=== PATIENT | male | born 1975 | race Hispanic/Latino ===

== ENCOUNTER 2019-03-08 18:44 | Emergency (ER) | payer BC, SELFPAY ==
[2019-03-08 19:06] VITALS: BP 145/99; PULSE 78; RESP 16; TEMP 36.6; O2SAT 100
[2019-03-08 19:49] LABS: Add Manual Diff / Slide Review NO; Basophils Absolute Auto 100 /uL (0-100); Basophils Percent Auto 1.2 % (0-2); Eosinophils Absolute Auto 300 /uL (0-450); Eosinophils Percent Auto 4.6 % (2-4); Hematocrit 44.2 % (41-53); Hemoglobin 14.8 g/dL (13.5-17.5); Lymphocytes Absolute Auto 2100 /uL (1100-4500); Lymphocytes Percent Auto 34.5 % (25-40); Mean Corpuscular HGB Conc 33.4 % (30-36); Mean Corpuscular Hemoglobin 30.4 PG (26-34); Mean Corpuscular Volume 91.1 fL (80-100); Monocytes Absolute Auto 700 /uL (0-900); Monocytes Percent Auto 11.9 % (3-14); Neutrophils Absolute Auto 2900 /uL (1500-7000); Neutrophils Percent Auto 47.8 % (50-75); Platelet Count 268 X10^3/uL (150-400); Red Blood Cell Count 4.85 X10^6/uL (4.5-5.9); Red Cell Distribution Width 12.8 % (11.6-14.8); White Blood Cell Count 6.1 X10^3/uL (4.5-11.0)
[2019-03-08] MEDS: SODIUM CHLORIDE 0.9% 1,000 ML 150 ML IV (19:53)
[2019-03-08] MEDS: ONDANSETRON 4 MG/2 ML INJ IV (19:53)
[2019-03-08 19:56] LABS: INR 0.9 (0.9-1.3); Prothrombin Time 9.7 SECONDS (10.1-12.7)
[2019-03-08 20:00] LABS: D Dimer < 200 ng/mL (<230)
[2019-03-08 20:01] VITALS: BP 137/82; PULSE 63; RESP 16; O2SAT 100
[2019-03-08 20:02] LABS: Alanine Aminotransferase 76 IU/L (21-72); Albumin 4.8 g/dL (3.5-5.0); Albumin Globulin Ratio 1.6 (1.0-2.8); Alkaline Phosphatase 69 U/L (38-126); Ammonia (NH3) < 9.0 umol/L (9-30); Aspartate Aminotransferase 71 IU/L (17-59); Bilirubin Total 0.4 mg/dL (0.2-1.3); Blood Urea Nitrogen 9 mg/dL (9-20); Calcium 9.6 mg/dL (8.4-10.2); Carbon Dioxide 35 mmol/L (22-32); Chloride 101 mmol/L (98-107); Estimated Glomerular Filt Rate > 60.0 mL/min (>60); Ethanol (ETOH) < 10 mg/dL; Glucose 78 mg/dL (70-100); HEMOLYSIS 24 (0-50); Lactate (Lactic Acid) 1.1 mmol/L (0.7-2.1); Lipase 286 U/L (23-300); Potassium 4.1 mmol/L (3.4-5.1); Sodium 142 mmol/L (137-145); Total Protein 7.8 g/dL (6.3-8.2)
--- NOTE | 2019-03-08 20:08 | DI.CT.S_ITS ---
PROCEDURE: CT CHEST ABDOMEN W CON INDICATIONS: chest / abdomen pain, near syncope TECHNIQUE: After the administration of intravenous contrast, 5 mm thick sections acquired from the lung apices to the iliac crests. 5 mm coronal and sagittal reformats were performed, with additional 7 mm coronal MIP reformats through the lungs. For radiation dose reduction, the following was used: automated exposure control, adjustment of mA and/or kV according to patient size. COMPARISON: None. FINDINGS: Image quality: Excellent. CHEST: Lungs and pleura: No acute airspace opacities. 3 mm solid nodule in the posterior medial aspect of left lower lobe is seen series 3 image 182. Dependent atelectasis in posterior aspect of bilateral lower lobes are seen. Lobulated 7 x 4 mm nodule in posterior medial aspect of left lower lobe is also noted series 3 image 157. 4 mm ground glass density nodule in posterior-lateral aspect of left upper lobe is seen series 3 image 107. 3 mm calcified granuloma in anterior aspect of left upper lobe is also noted series 3 image 92. No pleural effusions or pneumothorax. Central and peripheral airways appear patent and normal in caliber. Mediastinum: Heart size is normal. No pericardial effusion. No mediastinal or hilar adenopathy by size criteria. Thoracic aorta and central pulmonary arteries are normal in size. Esophagus is normal in caliber. No hiatal hernia. Chest wall: No axillary or supraclavicular adenopathy by size criteria. Thyroid gland is within normal limits. ABDOMEN: Solid organs: Liver is normal in size and enhancement. Gallbladder is unremarkable. Biliary system is non dilated. Pancreas enhances normally. Spleen is normal in size and enhancement. No adrenal nodules. Kidneys demonstrate normal size and enhancement, without hydronephrosis. Peritoneum and bowel: Bowel loops demonstrate normal wall thickness and caliber. No free fluid or air. Nodes and vessels: No retroperitoneal or mesenteric adenopathy by size criteria. Aorta and inferior vena cava are normal in size. Bones: No suspicious bony lesions. No vertebral body compression fractures. Miscellaneous: No ventral hernias. IMPRESSION: 1. There is no aortic aneurysm or dissection. Pulmonary artery is normal in size. 2. Subcentimeter solid and well glass density nodules in bilateral lung carrington as described above. Followup CT study of chest in 6-12 months is recommended for evaluation of stability. Bilateral lungs are otherwise clear. 3. No lymphadenopathy is seen in chest or abdomen. No evidence of bowel obstruction. No free fluid or free air. Dictated by: Evin Clements M.D. on 03/08/2019 at 21:09 Approved by: Evin Clements M.D. on 03/08/2019 at 21:18
[2019-03-08 20:38] VITALS: BP 117/73; PULSE 74; RESP 18; O2SAT 100
[2019-03-08 21:07] VITALS: BP 120/78; PULSE 63; RESP 17; O2SAT 100
[2019-03-08 21:33] LABS: Bacteria Urine None Seen; RBC Urine None Seen (0-5/HPF); WBC Urine None Seen (0-5/HPF)
[2019-03-08 21:44] LABS: Ur Creatinine 50 (Normal); Ur Specific Gravity 1.015 (Normal); Urine Tetrahydrocannabinol Negative (Negative); Urine pH 5 (Normal)
[2019-03-08 21:45] LABS: UR Morphine/Opiate cutoff 300 Positive (Negative); Urine Amphetamines Negative (Negative); Urine Barbiturates Negative (Negative); Urine Benzodiazepines Positive (Negative); Urine Cocaine Negative (Negative); Urine MDMA Negative (Negative); Urine Methadone Negative (Negative); Urine Methamphetamines Positive (Negative); Urine Oxycodone Negative (Negative); Urine Phencyclidine Negative (Negative); Urine Tricyclic Antidepressant Negative (Negative)
[2019-03-08 21:49] LABS: Culture Indicated Urine Cult Not Indicated
--- NOTE | 2019-03-08 22:21 | ED_ITS ---
HPI - Abdominal Pain General Chief Complaint: Abdominal Pain Stated Complaint: blacked out earlier, nausea Time Seen by Provider: 03/08/19 19:00 Source: patient Mode of arrival: Ambulatory Limitations: no limitations History of Present Illness HPI narrative: 43-year-old male former smoker admits to alcohol a few times a month, presents with his daughter for evaluation of sudden onset severe epigastric pain earlier today. The pain was intense and made him feel as if he may black out. He presents complaining of some ongoing epigastric pain. He denies any chest pain or shortness of breath. He is not dizzy nor weak or lightheaded. He denies any history of the same. He recently traveled here from [facility]. He denies provocation, palliation or radiation of pain. 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 He last used on Wednesday. MD complaint: abdominal pain Onset (ago): hour(s) Pain Consistency: now resolved Location: epigastric Severity: moderate Quality: cramping and stabbing Radiation: none Migration to: no migration Relieving factors: nothing Exacerbating factors: nothing Associated symptoms: denies other symptoms Related Data Allergies Allergy/AdvReac Type Severity Reaction Status Date / Time No Known Drug Allergies Allergy Verified 03/08/19 20:23 Review of Systems Constitutional Constitutional: Denies chills, Denies fatigue, Denies fever(s), Denies frequent falls, Denies lethargy and Denies weakness Eyes Eyes: Denies change in vision, Denies eye discharge, Denies irritation and Denies loss of vision ENT Ears, Nose, Mouth, and Throat: Denies change in voice, Denies dizziness, Denies neck pain, Denies sore throat and Denies throat swelling Cardiovascular Cardiovascular: Denies chest pain, Denies irregular heart rhythm, Reports lightheadedness, Denies palpitations, Denies dyspnea, Denies dyspnea on exertion and Denies orthopnea Respiratory Respiratory: Denies cough, Denies dyspnea, Denies dyspnea on exertion and Denies wheezing Gastrointestinal Gastrointestinal: Reports abdominal pain, Denies change in bowel habits, Denies diarrhea, Denies nausea and Denies vomiting Genitourinary Genitourinary: Denies hematuria, Denies flank pain, Denies urinary incontinence and Denies urinary urgency Musculoskeletal Musculoskeletal: Denies back pain, Denies muscle weakness, Denies neck pain, Denies numbness and Denies tingling Integumentary/Breasts Skin/Breast: Denies pruritus, Denies erythema, Denies rash and Denies wounds Neurologic Neurologic: Denies behavioral changes, Denies confusion, Denies dizziness, Denies frequent falls, Denies loss of vision, Denies numbness, Denies tingling and Denies weakness Psychiatric Psychiatric: Denies anxiety, Denies behavioral changes, Denies confusion, Denies depression, Denies homicidal ideation and Denies suicidal ideation Endocrine Endocrine: Denies fatigue, Denies flushing and Denies palpitations Hematologic/Lymphatic Hematologic/Lymphatic: Denies easy bruising Allergic/Immunologic Allergic/Immunologic: Denies urticaria, Denies throat swelling and Denies wheezing Patient History Social History Smoking Status: Former smoker Social History Smoking Status: Former smoker alcohol intake frequency: a few times a month Substance Use Type: does not use Exam Narrative Exam Narrative: GENERAL: [43] year old patient appears stated age. Well- nourished, well-developed patient, in mild distress. Appears uncomfortable HEAD: Atraumatic. Normocephalic. EYES: Pupils equal round and reactive. Extraocular motions intact. No scleral icterus. No injection or drainage. ENT: Nose without bleeding, purulent drainage. Throat without erythema, tonsillar hypertrophy or exudate. Airway patent. NECK: Trachea midline. Non tender CARDIOVASCULAR: Regular rate and rhythm without murmurs, gallops, or rubs. RESPIRATORY: Clear to auscultation. Breath sounds equal bilaterally. No wheezes, rales, or rhonchi. GASTROINTESTINAL: Abdomen soft, severe epigastric pain, nondistended. EXTREMITIES: No edema or joint tenderness. BACK: Nontender without deformity or crepitance. No flank tenderness. NEURO: AOx3. SKIN: No rash or erythema of visible areas Initial Vital Signs Initial Vital Signs: Vital Signs Temperature 97.8 F 03/08/19 19:06 Pulse Rate 78 03/08/19 19:06 Respiratory Rate 16 03/08/19 19:06 Blood Pressure 145/99 H 03/08/19 19:06 Pulse Oximetry 100 03/08/19 19:06 Course Orders Ordered: ED Orders 03/08/19 19:40 Ammonia (NH3) Stat Complete Blood Count AUTO DIFF Stat Comprehensive Metabolic Panel Stat D Dimer Stat Ethanol (ETOH) Stat Lactate (Lactic Acid) Stat Lipase Stat Prothrombin Time INR Stat 10/16/19 20:08 CT chest abdomen w con Stat 03/08/19 21:20 Urine Drug Screen, Rapid Stat Urine Microscopic Stat 03/08/19 22:24 US abdomen limited Stat Discontinued Medications Hydromorphone HCl (Dilaudid) 0.5 mg IV NOW ONE Stop: 03/08/19 19:11 Last Admin: 03/08/19 21:08 Dose: Not Given Documented by: ROSENDO Sodium Chloride (Normal Saline 0.9%) 1,000 mls @ 150 mls/hr IV CONT RACIEL Last Infusion: 03/08/19 23:00 Dose: 0 mls/hr Documented by: Admin: 03/08/19 19:53 Dose: 150 mls/hr Documented by: ROSENDO Ondansetron HCl (Zofran) 4 mg IV NOW ONE Stop: 03/08/19 19:11 Last Admin: 03/08/19 19:53 Dose: 4 mg Documented by: ROSENDO Reevaluation(s) Reevaluation #1: patient shows tremendous improvement after fluids Vital Signs Vital signs: Vital Signs - 8 hr 03/08/19 19:06 03/08/19 20:01 03/08/19 20:38 Temperature 97.8 F Pulse Rate 78 63 74 Respiratory Rate 16 16 18 Blood Pressure Blood Pressure [Left Arm] 145/99 H 137/82 117/73 Pulse Oximetry 100 100 100 03/08/19 21:07 03/08/19 23:27 Temperature Pulse Rate 63 68 Respiratory Rate 17 14 Blood Pressure 118/74 Blood Pressure [Left Arm] 120/78 Pulse Oximetry 100 100 MDM - Abdominal Pain Lab Data Result diagrams: 03/08/19 19:40 03/08/19 19:40 Labs: Lab Results 03/08/19 03/08/19 03/08/19 Range/Units 19:40 19:40 19:40 WBC 6.1 (4.5-11.0) X10^3/uL RBC 4.85 (4.5-5.9) X10^6/uL Hgb 14.8 (13.5-17.5) g/dL Hct 44.2 (41-53) % MCV 91.1 (80-100) fL MCH 30.4 (26-34) PG MCHC 33.4 (30-36) % RDW 12.8 (11.6-14.8) % Plt Count 268 (150-400) X10^3/uL Neut % (Auto) 47.8 L (50-75) % Lymph % (Auto) 34.5 (25-40) % [place] % (Auto) 11.9 (3-14) % Eos % (Auto) 4.6 H (2-4) % Baso % (Auto) 1.2 (0-2) % Neut # (Auto) 2900 (4435-1433) /uL Lymph # (Auto) 2100 (3014-1460) /uL [place] # (Auto) 700 (0-900) /uL Eos # (Auto) 300 (0-450) /uL Baso # (Auto) 100 (0-100) /uL PT 9.7 L (10.1-12.7) SECONDS INR 0.9 (0.9-1.3) D-Dimer < 200 (<230) ng/mL Sodium 142 (137-145) mmol/L Potassium 4.1 (3.4-5.1) mmol/L Chloride 101 (98-107) mmol/L Carbon Dioxide 35 H (22-32) mmol/L BUN 9 (9-20) mg/dL Creatinine 1.00 (0.66-1.25) mg/dL Estimated GFR > 60.0 (>60) mL/min BUN/Creatinine Ratio 9.0 (6-22) Glucose 78 (70-100) mg/dL Lactate (0.7-2.1) mmol/L Calcium 9.6 (8.4-10.2) mg/dL Total Bilirubin 0.4 (0.2-1.3) mg/dL AST 71 H (17-59) IU/L ALT 76 H (21-72) IU/L Alkaline Phosphatase 69 (38-126) U/L Ammonia (9-30) umol/L Total Protein 7.8 (6.3-8.2) g/dL Albumin 4.8 (3.5-5.0) g/dL Globulin 3.0 (1.7-4.1) g/dL Albumin/Globulin Ratio 1.6 (1.0-2.8) Lipase 286 (23-300) U/L Urine RBC (0-5/HPF) Urine WBC (0-5/HPF) Urine Bacteria (None) Ur Culture Indicated? U Morph 300 ng/mL cutoff (Negative) Ur Oxycodone Screen (Negative) Urine Methadone Screen (Negative) Ur Barbiturates Screen (Negative) U Tricyclic Antidepress (Negative) Ur Phencyclidine Scrn (Negative) Ur Amphetamines Screen (Negative) U Methamphetamines Scrn (Negative) Ur MDMA Scrn (Ecstasy) (Negative) U Benzodiazepines Scrn (Negative) Urine Cocaine Screen (Negative) U Marijuana (THC) Screen (Negative) Ethyl Alcohol < 10 ( - 10) mg/dL 03/08/19 03/08/19 03/08/19 Range/Units 19:40 19:40 21:20 WBC (4.5-11.0) X10^3/uL RBC (4.5-5.9) X10^6/uL Hgb (13.5-17.5) g/dL Hct (41-53) % MCV (80-100) fL MCH (26-34) PG MCHC (30-36) % RDW (11.6-14.8) % Plt Count (150-400) X10^3/uL Neut % (Auto) (50-75) % Lymph % (Auto) (25-40) % [place] % (Auto) (3-14) % Eos % (Auto) (2-4) % Baso % (Auto) (0-2) % Neut # (Auto) (6993-2185) /uL Lymph # (Auto) (4537-5526) /uL [place] # (Auto) (0-900) /uL Eos # (Auto) (0-450) /uL Baso # (Auto) (0-100) /uL PT (10.1-12.7) SECONDS INR (0.9-1.3) D-Dimer (<230) ng/mL Sodium (137-145) mmol/L Potassium (3.4-5.1) mmol/L Chloride (98-107) mmol/L Carbon Dioxide (22-32) mmol/L BUN (9-20) mg/dL Creatinine (0.66-1.25) mg/dL Estimated GFR (>60) mL/min BUN/Creatinine Ratio (6-22) Glucose (70-100) mg/dL Lactate 1.1 (0.7-2.1) mmol/L Calcium (8.4-10.2) mg/dL Total Bilirubin (0.2-1.3) mg/dL AST (17-59) IU/L ALT (21-72) IU/L Alkaline Phosphatase (38-126) U/L Ammonia < 9.0 L (9-30) umol/L Total Protein (6.3-8.2) g/dL Albumin (3.5-5.0) g/dL Globulin (1.7-4.1) g/dL Albumin/Globulin Ratio (1.0-2.8) Lipase (23-300) U/L Urine RBC (0-5/HPF) Urine WBC (0-5/HPF) Urine Bacteria (None) Ur Culture Indicated? U Morph 300 ng/mL cutoff Positive H (Negative) Ur Oxycodone Screen Negative (Negative) Urine Methadone Screen Negative (Negative) Ur Barbiturates Screen Negative (Negative) U Tricyclic Antidepress Negative (Negative) Ur Phencyclidine Scrn Negative (Negative) Ur Amphetamines Screen Negative (Negative) U Methamphetamines Scrn Positive H (Negative) Ur MDMA Scrn (Ecstasy) Negative (Negative) U Benzodiazepines Scrn Positive H (Negative) Urine Cocaine Screen Negative (Negative) U Marijuana (THC) Screen Negative (Negative) Ethyl Alcohol ( - 10) mg/dL 03/08/19 Range/Units 21:20 WBC (4.5-11.0) X10^3/uL RBC (4.5-5.9) X10^6/uL Hgb (13.5-17.5) g/dL Hct (41-53) % MCV (80-100) fL MCH (26-34) PG MCHC (30-36) % RDW (11.6-14.8) % Plt Count (150-400) X10^3/uL Neut % (Auto) (50-75) % Lymph % (Auto) (25-40) % [place] % (Auto) (3-14) % Eos % (Auto) (2-4) % Baso % (Auto) (0-2) % Neut # (Auto) (3306-6235) /uL Lymph # (Auto) (5569-4555) /uL [place] # (Auto) (0-900) /uL Eos # (Auto) (0-450) /uL Baso # (Auto) (0-100) /uL PT (10.1-12.7) SECONDS INR (0.9-1.3) D-Dimer (<230) ng/mL Sodium (137-145) mmol/L Potassium (3.4-5.1) mmol/L Chloride (98-107) mmol/L Carbon Dioxide (22-32) mmol/L BUN (9-20) mg/dL Creatinine (0.66-1.25) mg/dL Estimated GFR (>60) mL/min BUN/Creatinine Ratio (6-22) Glucose (70-100) mg/dL Lactate (0.7-2.1) mmol/L Calcium (8.4-10.2) mg/dL Total Bilirubin (0.2-1.3) mg/dL AST (17-59) IU/L ALT (21-72) IU/L Alkaline Phosphatase (38-126) U/L Ammonia (9-30) umol/L Total Protein (6.3-8.2) g/dL Albumin (3.5-5.0) g/dL Globulin (1.7-4.1) g/dL Albumin/Globulin Ratio (1.0-2.8) Lipase (23-300) U/L Urine RBC None seen (0-5/HPF) Urine WBC None seen (0-5/HPF) Urine Bacteria None seen (None) Ur Culture Indicated? Cult not indicated U Morph 300 ng/mL cutoff (Negative) Ur Oxycodone Screen (Negative) Urine Methadone Screen (Negative) Ur Barbiturates Screen (Negative) U Tricyclic Antidepress (Negative) Ur Phencyclidine Scrn (Negative) Ur Amphetamines Screen (Negative) U Methamphetamines Scrn (Negative) Ur MDMA Scrn (Ecstasy) (Negative) U Benzodiazepines Scrn (Negative) Urine Cocaine Screen (Negative) U Marijuana (THC) Screen (Negative) Ethyl Alcohol ( - 10) mg/dL Point of care testing: Urine Dip Bedside Urine Glucose Negative Bedside Urine Bilirubin - Negative Bedside Urine Ketone +/- 5 Urine Specific [place] 1.015 Bedside Urine Occult Blood - Negative Bedside Urine pH 6.5 Bedside Urine Protein +/- 15 Bedside Urine Urobilinogen +/- 1mg Bedside Urine Nitrite - Negative Bedside Urine Leukocytes - Negative Esterase Imaging Data CT scan - abdomen: Radiologist's impression: [address] [address] [address] Scan Report Signed Patient: Andriy Blair RMR#: [id number] : 1975Acct:[id number] Age/Sex: 43 / MDate of Service: 03/08/19 Loc: ED Accession Number: [id number] Procedure: CT chest abdomen w con Ordering Provider: Israel Robbins D.O. PROCEDURE: CT CHEST ABDOMEN W CON INDICATIONS: chest / abdomen pain, near syncope TECHNIQUE: After the administration of intravenous contrast, 5 mm thick sections acquired from the lung apices to the iliac crests. 5 mm coronal and sagittal reformats were performed, with additional 7 mm coronal MIP reformats through the lungs. For radiation dose reduction, the following was used: automated exposure control, adjustment of mA and/or kV according to patient size. COMPARISON: None. FINDINGS: Image quality: Excellent. CHEST: Lungs and pleura: No acute airspace opacities. 3 mm solid nodule in the posterior medial aspect of left lower lobe is seen series 3 image 182. Dependent atelectasis in posterior aspect of bilateral lower lobes are seen. Lobulated 7 x 4 mm nodule in posterior medial aspect of left lower lobe is also noted series 3 image 157. 4 mm ground glass density nodule in posterior-lateral aspect of left upper lobe is seen series 3 image 107. 3 mm calcified granuloma in anterior aspect of left upper lobe is also noted series 3 image 92. No pleural effusions or pneumothorax. Central and peripheral airways appear patent and normal in caliber. Mediastinum: Heart size is normal. No pericardial effusion. No mediastinal or hilar adenopathy by size criteria. Thoracic aorta and central pulmonary arteries are normal in size. Esophagus is normal in caliber. No hiatal hernia. Chest wall: No axillary or supraclavicular adenopathy by size criteria. Thyroid gland is within normal limits. ABDOMEN: Solid organs: Liver is normal in size and enhancement. Gallbladder is unremarkable. Biliary system is non dilated. Pancreas enhances normally. Spleen is normal in size and enhancement. No adrenal nodules. Kidneys demonstrate normal size and enhancement, without hydronephrosis. Peritoneum and bowel: Bowel loops demonstrate normal wall thickness and calibe r. No free fluid or air. Nodes and vessels: No retroperitoneal or mesenteric adenopathy by size criteria. Aorta and inferior vena cava are normal in size. Bones: No suspicious bony lesions. No vertebral body compression fractures. Miscellaneous: No ventral hernias. IMPRESSION: 1. There is no aortic aneurysm or dissection. Pulmonary artery is normal in size. 2. Subcentimeter solid and well glass density nodules in bilateral lung carrington as described above. Followup CT study of chest in 6-12 months is recommended for evaluation of stability. Bilateral lungs are otherwise clear. 3. No lymphadenopathy is seen in chest or abdomen. No evidence of bowel obstruction. No free fluid or free air. Dictated by: Evin Clements M.D. on 03/08/2019 at 21:09 Approved by: Evin Clements M.D. on 03/08/2019 at 21:18 US - abdomen: Radiologist's impression: No acute disease MDM Narrative Medical decision making narrative: Multiple etiologies for patient's symptoms considered including: [Pulmonary embolism but thought less likely given her while lack of a classic findings and a negative D-dimer. I the tire of pancreatitis or gallbladder disease thought less likely given lack of very lab or imaging findings, vs. other] Patient's symptoms improved or duration of stay with above-stated therapies. Findings and discharge diagnosis discussed with patient/family followed by verbalization of understanding Return precautions discussed with patient/family whom verbalize understanding. Discharge Plan Departure Patient Disposition: Home Clinical Impression: Abdominal pain, acute, epigastric, Near syncope Discharge Date/Time: 03/08/19 23:27 Instructions: DI for Abdominal Pain-Adult Activity Restrictions/Additional Instructions: *You have been diagnosed with [epigastric pain, and near syncope] *What to do: *Take medications as directed *Follow up with your primary care provider in 2-3 days, call for an appointment. Let them know you were seen in the Emergency Department and that we ask that you be seen in follow up *Return to ER if you should have any new, worsening or concerning symptoms Referrals: [facility] [Outside]
--- NOTE | 2019-03-08 22:24 | DI.US.S_ITS ---
PROCEDURE: US ABDOMEN LIMITED INDICATIONS: SEVERE ABDOMINAL PAIN TECHNIQUE: Real-time focused scanning was performed of the abdomen, with image documentation. COMPARISON: None. FINDINGS: Liver is sonographically normal. Gallbladder is underdistended. No gallstones. Gallbladder wall at the upper limits of normal in thickness measuring 3.0 mm. No pericholecystic fluid. No sonographic Mendes sign. No biliary obstruction. The common bile duct measures 4.0 mm. The pancreas is sonographically normal. Body and tail of the pancreas were obscured by bowel gas and cannot be evaluated. IMPRESSION: No sonographic evidence of cholelithiasis or cholecystitis. If there is continued clinical concern for biliary disease, then nuclear medicine HIDA scan should be considered for further evaluation. Dictated by: Melba Mcallister MD, PhD on 03/09/2019 at 8:12 Approved by: Melba Mcallister MD, PhD on 03/09/2019 at 8:17
[2019-03-08 23:27] VITALS: BP 118/74; PULSE 68; RESP 14; O2SAT 100
== END 2019-03-08 23:27 | disposition home or self-care (01) ==
PROVIDERS: Emergency Provider Emergency Medicine
DX: R10.13 Epigastric pain (principal); R55 Syncope and collapse
CPT/HCPCS: 36415; 71260; 74160; 76705; 80053; 80305; 80320; 81003; 81015; 82140; 83605; 83690; 85025; 85379; 85610; 96361; 96374; 99283; 99285; J2405; Q9967